=== PATIENT | male | born 1955 | race Caucasian/White ===

== ENCOUNTER → 2016-10-12 | Outpatient (CLI) | payer BC ==
--- NOTE | 2016-10-12 16:04 | Diagnostic Imaging Report ---
Indication: COUGH Technique: 2 views of the chest Comparison: 01/02/2014. Findings: Lungs and pleural spaces are clear. Heart size is normal. Bones are unremarkable. Delete Previously demonstrated right basilar nipple shadows again demonstrated. No significant change Impression: No acute process
== END | disposition home or self-care (01) ==
LOC: RAD 12:03
DX: R05 Cough (principal)
CPT/HCPCS: 71020

== ENCOUNTER 2018-05-18 15:51 | Outpatient (CLI) | payer BC ==
--- NOTE | 2018-05-18 17:07 | Diagnostic Imaging Report ---
Indication: Cough Technique: 2 views of the chest Comparison: 10/12/2016 Findings: Lungs and pleural spaces are clear. The heart size is normal. The bones are unremarkable. No significant interim change. Impression: Negative
== END 2018-05-21 17:51 | disposition home or self-care (01) ==
LOC: RAD 15:51
DX: Z01.818 Encounter for other preprocedural examination (principal); Z01.812 Encounter for preprocedural laboratory examination
CPT/HCPCS: 71046

== ENCOUNTER 2019-08-25 11:04 | Outpatient (CLI) | payer BC ==
--- NOTE | 2019-08-25 18:05 | Diagnostic Imaging Report ---
Indication: Cough Technique: 2 views of the chest Comparison: None Findings: Lungs and pleural spaces are clear. The heart size is upper limits normal. The bones are unremarkable. Less optimal inspiration currently. No other significant interim change. Impression: Negative
== END 2019-08-25 13:04 | disposition home or self-care (01) ==
LOC: RAD 11:04
DX: R05 Cough (principal)
CPT/HCPCS: 71046